=== PATIENT | female | born 1940 | race Caucasian/White ===

== ENCOUNTER 2024-08-28 14:45 | Outpatient (CLI) | payer MEDICARE, BC, SELFPAY ==
--- NOTE | 2024-08-28 15:00 | CRLHL7_ITS ---
For Patients: As a result of the Century Cures Act, medical imaging exams and procedure reports are released immediately into your electronic medical record. You may view this report before your referring provider. If you have questions, please contact your health care provider. Indication: Abdominal pain. Technique: AP supine and upright views of the abdomen.. Comparison: None. Findings: Bowel gas pattern is within normal limits. There is air and a small amount of fecal matter within the colon extending from the cecum to the rectum. There are a few air-filled loops of nondistended small bowel. There is a small amount of air within the stomach. No bowel obstruction or free intraperitoneal air is identified. No abnormal calcification is seen. There are a few surgical clips and sutures superimposed over the right abdomen and lower pelvis. There is a mild scoliosis of the lumbar spine, apex to the right and degenerative changes within the lumbar spine and sacroiliac joints. The lung bases are clear. Impression: No acute abnormality. Dictated by Wiliam Matias MD @ 08/29/2024 10:57:48 AM (Electronically Signed)
== END 2024-08-28 14:46 | disposition home or self-care (01) ==
PROVIDERS: PCP Family Medicine; Visit Provider Family Medicine
DX: R10.84 Generalized abdominal pain (principal)
CPT/HCPCS: 74019